=== PATIENT | male | born 1940 | race Caucasian/White ===

== ENCOUNTER 2023-09-19 13:35 | Emergency (ER) | payer OTHER, SELFPAY ==
[2023-09-19 13:40] VITALS: BP 118/69; PULSE 71; RESP 16; O2SAT 99
--- NOTE | 2023-09-19 13:49 | XR_ITS ---
The [address] [address] Patient Name: ADRIANNA BRITT MRN: [id number] date: 1940 Sex: M Assigned Patient Location: ER Current Patient Location: Accession/Order Number: [id number] Exam Date: 09/19/2023 14:20 Report Date: 09/19/2023 15:21 At the request of: MAY VEGA Procedure: XR tibia fibula RT 2V EXAM: XR tibia fibula RT 2V TECHNIQUE: AP and lateral views right lower leg HISTORY: fall, pain COMPARISON: None. FINDINGS: No fracture or dislocation. Soft tissue swelling of the mid to lower right lower leg. Vascular calcifications are seen. Post surgical changes of the proximal tibia and medial compartment right knee. XR/XR tibia fibula RT 2V IMPRESSION: No acute bony injury. Electronically authenticated by: MICHAEL TILLMAN Date: 09/19/2023 15:21
[2023-09-19] MEDS: ADACEL DIPH,PERTUSS(ACELL),TET VAC/PF 0.5 ML ADULT SYRINGE IM (14:10)
--- NOTE | 2023-09-19 14:27 | ED.LOWEXI1 ---
HPI - Extremity Injury (Lower) General Chief Complaint: Extremity Injury, Lower Stated Complaint: LOWER EXTREMITY INJURY/FALL Time Seen by Provider: 09/19/23 13:45 Source: patient Mode of arrival: walk-in History of Present Illness HPI Narrative: 83-year-old male presents for an injury to his right lower leg area, anteriorly. Yesterday he hit it on the door frame of a car. He is on a blood thinner. Family was concerned and they brought him in to get it checked. No other injury was sustained, he didn't hit his head. Related Data Allergies Allergy/AdvReac Type Severity Reaction Status Date / Time milk Allergy Severe Verified 09/19/23 13:45 Sulfa (Sulfonamide Allergy Severe Verified 09/19/23 13:45 Antibiotics) Review of Systems ROS Narrative A ten point review of systems is negative except as noted above. Exam Narrative Exam Narrative: Nurses note and vital signs reviewed and patient is not hypoxic. General: The patient appears well and in no apparent distress. Patient is resting comfortably on cart. Skin: Warm, dry, no pallor noted. There is no rash noted. Head: Normocephalic, atraumatic Eye: Normal conjunctiva, no drainage Ears, Nose, Mouth, and Throat: oral mucosa is moist. Nares patent. Cardiovascular: tachycardic Respiratory: Patient is in no distress, no accessory muscle use, lungs are clear to auscultation, no wheezing, rales or rhonchi Back: non-tender, no CVA tenderness bilaterally to percussion. GI: no tenderness to palpation, no masses appreciated. No rebound, guarding, or rigidity noted. Musculoskeletal: right lower leg anteriorly has skin abrasion and what appears to be avulsion of some skin as well. There is some swelling but no active bleeding. The knee and ankle did not seem to be tender. Neurological: awake and alert Psychiatric: Cooperative Constitutional Vital Signs, click to edit/add: Last Vital Signs Pulse 71 09/19/23 13:40 Resp 16 09/19/23 13:40 BP 118/69 09/19/23 13:40 Pulse Ox 99 09/19/23 13:40 O2 Del Method Room Air 09/19/23 13:40 Course Vital Signs Vital signs: Vital Signs Pulse Rate 71 09/19/23 13:40 Respiratory Rate 16 09/19/23 13:40 Blood Pressure 118/69 09/19/23 13:40 Pulse Oximetry 99 09/19/23 13:40 Oxygen Delivery Method Room Air 09/19/23 13:40 Pulse Rate 71 09/19/23 13:40 Respiratory Rate 16 09/19/23 13:40 Blood Pressure 118/69 09/19/23 13:40 Pulse Oximetry 99 09/19/23 13:40 Oxygen Delivery Method Room Air 09/19/23 13:40 MDM - Extremity Injury (Lower) MDM Narrative Medical decision making narrative: x-ray per radiologist shows no acute findings. Tetanus is updated and dressing applied. He was recommended elevation. He is already on an antibiotic for a skin issue and he'll continue that antibiotic. Treatment diagnosis and follow-up were discussed with the patient and his family. Differential Diagnosis Differential diagnosis: Likely other (fracture, contusion, abrasion) Imaging Data right tibia: Radiologist's impression: ITS Impressions Tibia/Fibula X-Ray 09/19/23 13:49 IMPRESSION: No acute bony injury. Electronically authenticated by: MICHAEL TILLMAN Date: 09/19/2023 15:21 Discharge Plan Discharge Chief Complaint: Extremity Injury, Lower Clinical Impression: Contusion of leg, right Patient Disposition: Home, Self-Care Time of Disposition Decision: 15:41 Condition: Good Mode of Transportation: Private Vehicle Instructions: Contusion in Adults (ED) Additional Instructions: Elevate leg frequently Stand Alone Forms: Portal Instructions Referrals: GERARD LEON [Primary Care Provider] - 1 week
== END 2023-09-19 15:57 | disposition home or self-care (01) ==
PROVIDERS: Emergency Provider Emergency Medicine; PCP Internal Medicine
DX: S80.11XA Contusion of right lower leg, initial encounter (principal); W22.8XXA Striking against or struck by other objects, initial encounter; Z23 Encounter for immunization
CPT/HCPCS: 73590; 90471; 90715; 99283

== ENCOUNTER 2023-09-25 09:28 | Outpatient (OUT) | payer MEDICARE, OTHER, SELFPAY | END 2023-09-25 09:29 | disposition home or self-care (01) | LOC: WC 09:29 | PROVIDERS: PCP Internal Medicine; Visit Provider Podiatrist Foot & Ankle Surgery | DX: R60.1 Generalized edema (principal); S81.801A Unspecified open wound, right lower leg, initial encounter | CPT/HCPCS: G0463 ==

== ENCOUNTER 2023-10-13 13:01 | Outpatient (OUT) | payer MEDICARE, OTHER, SELFPAY | END 2023-10-13 13:02 | disposition home or self-care (01) | LOC: WC 13:19 | PROVIDERS: PCP Internal Medicine; Visit Provider Podiatrist Foot & Ankle Surgery | DX: S81.801A Unspecified open wound, right lower leg, initial encounter (principal) | CPT/HCPCS: G0463 ==

== ENCOUNTER 2024-01-27 14:11 | Emergency (ER) | payer OTHER, SELFPAY ==
[2024-01-27 14:19] VITALS: BP 155/94; PULSE 86; O2SAT 98; BMI 30.9
--- NOTE | 2024-01-27 14:28 | XR_ITS ---
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 Mild narrowing the joint spaces and small periarticular degenerative osteophytes involving the medial and lateral compartments. Large degenerative osteophytes along margins of patella. SOFT TISSUES:No visible soft tissue swelling. EFFUSION:None visible. OTHER: Negative. XR/XR knee RT 4V IMPRESSION: 1. No appreciable acute bone abnormality. 2. Moderate degenerative joint disease. 3. Stable surgical changes without appreciable hardware failure. Electronically authenticated by: SUPA MATHUR Date: 01/27/2024 15:37
--- NOTE | 2024-01-27 14:28 | ED.LOWEXI1 ---
HPI HPI - Extremity Injury (Lower) General Chief Complaint: Extremity Injury, Lower Stated Complaint: KNEE PAIN, RIGHT Time Seen by Provider: 01/27/24 14:13 Source: patient Mode of arrival: walk-in Limitations: no limitations History of Present Illness HPI Narrative: Patient is an 83-year-old male who presents to the emergency department for right lateral knee pain intermittently for the last 3 days. 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 He denies any falls or injuries. He states when he has gotten out of his car the last several days he is felt aching in the right lateral knee. He has not noticed any swelling, redness, warmth, wounds or drainage. He has no lower leg pain. Related Data Home Medications ?Medication ?Instructions ?Recorded ?Confirmed fluticasone propionate 50 1 spray intranasal DAILY 01/27/24 01/27/24 mcg/actuation nasal spray,suspension loratadine 10 mg tablet 10 mg PO Q24H 01/27/24 01/27/24 Previous Rx's ?Medication ?Instructions ?Recorded prednisone 20 mg tablet 40 mg (2 x 20 mg) PO DAILY 3 days 01/27/24 #6 tabs tramadol 50 mg tablet 50 mg PO Q6H PRN pain 3 days #12 01/27/24 tabs Allergies Allergy/AdvReac Type Severity Reaction Status Date / Time milk Allergy Severe Verified 01/27/24 14:22 Sulfa (Sulfonamide Allergy Severe Verified 01/27/24 14:22 Antibiotics) Opioid HPI Opioid Management Most Recent Pain and Opioid Data: Last ED Pain Assessment 01/27/24 14:29 Review of Systems ROS Constitutional Denies: fever or chills Ears, nose, mouth, and throat Denies: throat pain or neck pain Respiratory Denies: shortness of breath Gastrointestinal Denies: nausea or vomiting Musculoskeletal Reports: extremity pain and joint pain; Denies: back pain, neck pain, extremity swelling or limited range of motion Integumentary/Breast Denies: rash Hematologic/Lymphatic Denies: easy bruising or easy bleeding Allergic/Immunologic Denies: hives Exam Narrative Exam Narrative: Gen.: Awake, alert, in no distress Head: Normocephalic, atraumatic ENT: Moist mucous membranes Respiratory: No respiratory distress Extremities: Well-healed surgical incision over the right anterior knee with no Swelling, redness or warmth noted of the joint. No joint effusion palpated. No calf tenderness. Psych: Normal mood and affect Neuro: No focal neuro deficit Skin: Warm, dry, intact Constitutional Vital Signs, click to edit/add: Last Vital Signs Pulse 86 01/27/24 14:19 Resp 20 01/27/24 14:19 BP 155/94 H 01/27/24 14:19 Pulse Ox 98 01/27/24 14:19 O2 Del Method Room Air 01/27/24 14:19 Course Vital Signs Vital signs: Vital Signs Pulse Rate 86 01/27/24 14:19 Respiratory Rate 20 01/27/24 14:19 Blood Pressure 155/94 H 01/27/24 14:19 Pulse Oximetry 98 01/27/24 14:19 Oxygen Delivery Method Room Air 01/27/24 14:19 Pulse Rate 86 01/27/24 14:19 Respiratory Rate 20 01/27/24 14:19 Blood Pressure 155/94 H 01/27/24 14:19 Pulse Oximetry 98 01/27/24 14:19 Oxygen Delivery Method Room Air 01/27/24 14:19 MDM - Extremity Injury (Lower) MDM Narrative Medical decision making narrative: X-rays reviewed by the radiologist show moderate degenerative changes. No acute bony abnormalities noted or evidence of hardware failure. Patient discharged home to follow-up with orthopedics. At this time there is no evidence of septic arthritis, redness or warmth to the joint. He is able to ambulate with a cane. Rest, ice, elevate. Darron wrap applied and the patient is referred to orthopedics, discharged home on a short course of steroids Medical Records Attestation: I reviewed the patient's medical records. Imaging Data XR knee: Attestation: I have reviewed the pertinent imaging results. Radiologist's impression: ITS Impressions Knee X-Ray 01/27/24 14:28 IMPRESSION: 1. No appreciable acute bone abnormality. 2. Moderate degenerative joint disease. 3. Stable surgical changes without appreciable hardware failure. Electronically authenticated by: RIC MATHUR Date: 01/27/2024 15:37 Discharge Plan Discharge Stand Alone Forms: Portal Instructions Chief Complaint: Extremity Injury, Lower Clinical Impression: Right knee pain Patient Disposition: Home, Self-Care Time of Disposition Decision: 15:45 Condition: Good Prescriptions / Home Meds: New prednisone 20 mg tablet 40 mg PO DAILY 3 Days Qty: 6 0RF tramadol 50 mg tablet 50 mg PO Q6H PRN (Reason: pain) 3 Days Qty: 12 0RF Rx Instructions: DX: M25.561 No Action fluticasone propionate 50 mcg/actuation spray,suspension 1 spray INTRANASAL DAILY loratadine 10 mg tablet 10 mg PO Q24H Print Language: Luxembourgish Instructions: Knee Pain (ED), Arthralgia (ED) Referrals: GERARD LEON [Primary Care Provider] - 1 week Ric Amaya MD [Physician] - 1 week
== END 2024-01-27 16:08 | disposition home or self-care (01) ==
PROVIDERS: Emergency Provider Emergency Medicine; PCP Internal Medicine
DX: M25.561 Pain in right knee (principal); Z96.651 Presence of right artificial knee joint
CPT/HCPCS: 73564; 99283

== ENCOUNTER 2024-01-29 13:48 | Emergency (ER) | payer OTHER, SELFPAY ==
[2024-01-29 13:54] VITALS: BP 137/97; PULSE 86; TEMP 36.3; O2SAT 97
--- NOTE | 2024-01-29 14:01 | ECG_ITS ---
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
--- NOTE | 2024-01-29 14:10 | XR_ITS ---
The [address] [address] Patient Name: ADRIANNA BRITT MRN: [id number] date: 1940 Sex: M Assigned Patient Location: ER Current Patient Location: ER Accession/Order Number: [id number] Exam Date: 01/29/2024 14:25 Report Date: 01/29/2024 14:43 At the request of: LA QUEVEDO Procedure: XR foot LT min 3V PROCEDURE: XR foot LT min 3V HISTORY: pain left foot pain, chronic pain left third toe COMPARISON: XR foot left 09/26/2019 FINDINGS: BONES:Persistent flexion of the second, fourth, and 5th toes. Marked extension of third toe at the proximal interphalangeal joint. Advanced degenerative changes at the first tarsal-metatarsal joint with bone erosion into the medial cuneiform and into the base of the first metatarsal. Cortical irregularity along lateral margin of the metatarsal may be secondary to a fracture fragment. SOFT TISSUES:No visible soft tissue swelling. EFFUSION:None visible. OTHER: Negative. XR/XR foot LT min 3V IMPRESSION: 1. No acute bone abnormality of the toes. Persistent flexion and extension are noted. 2. Advanced degenerative changes versus posttraumatic changes involving the first tarsal-metatarsal joint; new since prior study. Electronically authenticated by: SUPA MATHUR Date: 01/29/2024 14:43
--- NOTE | 2024-01-29 15:37 | ED_ITS ---
HPI HPI - General Adult General Chief complaint: Extremity Injury, Lower Stated complaint: lower extremity pain Time Seen by Provider: 01/29/24 14:09 Source: patient Mode of arrival: walk-in Limitations: no limitations History of Present Illness HPI narrative: Patient is a 83-year-old male who is presenting to the ER with chief complaint of hammertoe and acute on chronic left foot pain and left ankle pain. Patient was having more pain to his left third toe this morning, patient said that he has some discoloration so he came to the ER for evaluation. [facility] [place].Patient says that he was recommended to come to the [facility] from the [facility] since he has not establish care with them yet.[facility] is [facility]. Patient has no black color, no purple color, he currently has no loss of color no signs of vascular compromise at this time. Patient has seen Dr. Salcedo locally for different wounds and podiatry care as well.No fever or chills. No new injury. No leg pain. No chest pain or shortness of breath. No other acute complaints All systems are negative except as noted/marked. All systems reviewed and otherwise negative. Nurses note and vital signs reviewed and patient is not hypoxic. General: The patient appears well and in no apparent distress. Patient is resting comfortably on cart. Patient is not toxic, lethargic, or listless Skin: Warm, dry, no pallor noted. There is no rash noted. No petechiae, purpura. Head: Normocephalic, atraumatic Eye: Normal conjunctiva, no drainage, EOMI. PERRL Ears, Nose, Mouth, and Throat: oral mucosa is moist. Nares patent. Mouth without vesicles. Cardiovascular: Regular Rate and Rhythm, no murmur, gallop, rub Respiratory: Patient is in no distress, no accessory muscle use, lungs are clear to auscultation, no wheezing, rales or rhonchi Musculoskeletal: Patient has full range of motion of all of the extremities Except to the left foot. Patient has mild tenderness to palpation to the left medial malleolus.Patient has deformities of most of the toes of the left foot from chronic changes, nothing acute.Patient is able to straighten the left toe with passive range of motion with no pain.Patient has no color compromise of the left foot or any toes of the left foot.Patient does have obvious hammertoe deformity left third toe and left second toe. No vascular compromise noted to the toes of the left foot.Patient has normal left dorsalis pedis pulse. No signs of DVT to left lower extremity no motor, sensory, or focal neurological deficits Neurological: A&O x4, normal speech Psychiatric: Cooperative Related Data Home Medications ?Medication ?Instructions ?Recorded ?Confirmed fluticasone propionate 50 1 spray intranasal DAILY 01/27/24 01/27/24 mcg/actuation nasal spray,suspension loratadine 10 mg tablet 10 mg PO Q24H 01/27/24 01/27/24 Previous Rx's ?Medication ?Instructions ?Recorded prednisone 20 mg tablet 40 mg (2 x 20 mg) PO DAILY 3 days 01/27/24 #6 tabs tramadol 50 mg tablet 50 mg PO Q6H PRN pain 3 days #12 01/27/24 tabs Allergies Allergy/AdvReac Type Severity Reaction Status Date / Time milk Allergy Severe Verified 01/27/24 14:22 Sulfa (Sulfonamide Allergy Severe Verified 01/27/24 14:22 Antibiotics) Opioid HPI Opioid Management Most Recent Opioid Data: Last Pain Scale 5 01/29/24 14:04 Last ED Pain Assessment 01/27/24 14:29 Exam Constitutional Vital Signs, click to edit/add: Last Vital Signs Temp 97.4 F L 01/29/24 13:54 Pulse 86 01/29/24 13:54 Resp 18 01/29/24 13:54 BP 137/97 H 01/29/24 13:54 Pulse Ox 97 01/29/24 13:54 Course Vital Signs Vital signs: Vital Signs Temperature 97.4 F L 01/29/24 13:54 Pulse Rate 86 01/29/24 13:54 Respiratory Rate 18 01/29/24 13:54 Blood Pressure 137/97 H 01/29/24 13:54 Pulse Oximetry 97 01/29/24 13:54 Temperature 97.4 F L 01/29/24 13:54 Pulse Rate 86 01/29/24 13:54 Respiratory Rate 18 01/29/24 13:54 Blood Pressure 137/97 H 01/29/24 13:54 Pulse Oximetry 97 01/29/24 13:54 Medical Decision Making MDM Narrative Medical decision making narrative: Patient had an x-ray of the left foot that shows no acute abnormalities. 20 minutes was spent at talking at discharge by myself with the patient.[facility] [place], I cannot speak to a operational test mechanic because patient has not establish care with the [facility] yet. Is recommended that patient follow-up with a scheduled appointment next Thursday.Patient was offered a podiatry shoe, he did not want one. Patient is discharged to follow-up with the [facility] as scheduled appointment, patient was also told that he can follow-up with Dr. Salcedo locally if needed.Patient has no signs of any type of vascular compromise to the toes of left foot. Patient left before discharge paperwork was done.Patient was seen in the second floor of the hospital.Patient drove away from the hospital.Yared RN did speak to the patient, and requested him to come back to get discharge papers and follow- up. 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 ECG Data Attestation: I personally reviewed and interpreted this ECG as follows: (EKG interpretation. Irregular irregular rhythm at 77 beats a minute. Artifact noted. QTc of 392. Left axis deviation. Paced rhythm, history of A-fib. Not acute) Discharge Plan Discharge Stand Alone Forms: Portal Instructions Chief Complaint: Extremity Injury, Lower Clinical Impression: Pain in toe of left foot, Hammer toe of left foot Patient Disposition: Home, Self-Care Time of Disposition Decision: 15:34 Condition: Fair Prescriptions / Home Meds: No Action fluticasone propionate 50 mcg/actuation spray,suspension 1 spray INTRANASAL DAILY loratadine 10 mg tablet 10 mg PO Q24H prednisone 20 mg tablet 40 mg PO DAILY 3 Days Qty: 6 0RF tramadol 50 mg tablet 50 mg PO Q6H PRN (Reason: pain) 3 Days Qty: 12 0RF Rx Instructions: DX: M25.561 Print Language: Luxembourgish Instructions: Swollen Joint (ED) Additional Instructions: Ice 20 minutes on, 20 minutes off. You have an appointment on February 02, with the [place] [facility]. We have called the podiatry office, we are not able to speak to a provider since she has not been seen yet. Follow-up with Dr. Salcedo locally if any other podiatry needs are needed. A copy of your x-ray report and the CD of the pictures were given to you to take to your podiatry physician next Thursday. Use Tylenol Motrin as needed for pain. Referrals: GERARD LEON [Primary Care Provider] - 1 week Discharge Date/Time: 01/29/24 16:32
--- NOTE | 2024-01-29 16:24 | PC.NURSE ---
Patient left without taking discharge paperwork or Disc. Will attempt to contact via phone.
--- NOTE | 2024-01-29 16:29 | PC.NURSE ---
Contacted patient about his discharge paperwork and discussed the discharge information with him. 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
== END 2024-01-29 16:32 | disposition home or self-care (01) ==
PROVIDERS: Emergency Provider Emergency Medicine; PCP Internal Medicine
DX: M79.675 Pain in left toe(s) (principal); M20.42 Other hammer toe(s) (acquired), left foot
CPT/HCPCS: 73630; 93005; 99283